=== PATIENT | female | born 1990 | race Caucasian/White ===

== ENCOUNTER 2016-11-12 12:56 | Emergency (ER) | payer MEDICAID ==
[~2016-11-12 12:56] MED LIST: BACTRIM DS DPS1 TAB PO; KLOR-CON M2020 ME1 PO; LOMOTIL-DPS1 TAB PO; MOTRIN-DPS800 MG PO; NEWMANS NIPPLE CREAM TP; PRENATAL VIT1 TAB PO; TYLENOL #3 DPS1 TAB PO
--- NOTE | 2016-11-20 17:46 | ER ---
ADMIT: 11/12/2016 RM/LOC: ER [facility] MR#: [id number] [address] [address] CARLOS MATAMOROS [address] [place] [address] Emergency Room Report SEX: F AGE: 26 : 1990 DATE: 11/12/2016 ADDENDUM: This patient comes to the ER because she has had vomiting and abdominal pain for the last week. She recently was diagnosed with Crohn disease, and it feels similar to that. She denies any fevers. On physical exam, her pain is right around the umbilicus. No rebound tenderness or guarding, but she does appear to be dehydrated. Dry oral mucosal membranes. IV of normal saline was started. She was given a liter of bolus, but was later repeated Zofran and morphine. CT scan showed flare-up of her Crohn disease. She was given Decadron 15 mg IV. Her potassium was low at 2.7, so she was given potassium 40 mEq p.o., and I wrote a prescription for the next week also for prednisone. She is to follow up with her doctor tomorrow if not feeling better. Return to the ER for not keeping fluids down or increased pain. Please see my T-sheet. TABATHA Romero / Lopez Najera MD / modl JOB #: [id number] CC: Lopez Najera MD, Attending Physician Bebe Buckley, Family Physician
== END 2016-11-12 18:15 | disposition home or self-care (01) ==
LOC: ER 12:56
DX: K50.90 Crohn's disease, unspecified, without complications (principal); F17.210 Nicotine dependence, cigarettes, uncomplicated; Z79.899 Other long term (current) drug therapy

== ENCOUNTER 2016-11-22 18:49 | Emergency (ER) | payer MEDICAID ==
--- NOTE | 2016-11-23 00:11 | ER ---
ADMIT: 11/22/2016 RM/LOC: ER [facility] MR#: [id number] [address] [address] CARLOS MATAMOROS [address] [place] [address] Emergency Room Report SEX: F AGE: 26 : 1990 DATE: 11/22/2016 TIME: [address] Bebe Buckley and a GI doctor in [place]. Please refer to my T-sheet for complete H and P. HISTORY OF PRESENT ILLNESS: Briefly, the patient is a 26-year-old, who has been having abdominal cramps, more than usual. It has been going on for 2 months. She was recently diagnosed with Crohn's. She started a new med. She has been off steroids for about a week ago though, seems like things are getting worse. PHYSICAL EXAMINATION: VITAL SIGNS: Vital signs are stable. HEENT: Grossly normal. LUNGS: Clear. HEART: Regular. ABDOMEN: Diffusely tender. No rebound or guarding. SKIN: No rash. EMERGENCY DEPARTMENT COURSE: CBC was normal except white count of 12.9. Chemistry is normal except potassium of 3.2. We gave her a liter of normal saline bolus, Zofran 4 IV and Decadron 10 IV. She was feeling better. I had a long discussion. She is ready for discharge. ASSESSMENT: Crohn's disease flare, off her steroids has made things worse. PLAN: Keep her appointment in 1 week with a kids activities coach and return if worse. Fluids. Prednisone 40, 30, 20, and 10 x 2 days each. Lamine Jesus MD/ norberto JOB #: [id number] CC: Lamine Jesus MD, Attending Physician
== END 2016-11-22 21:09 | disposition home or self-care (01) ==
LOC: ER 18:49
DX: K50.90 Crohn's disease, unspecified, without complications (principal); F17.210 Nicotine dependence, cigarettes, uncomplicated; Z90.49 Acquired absence of other specified parts of digestive tract; Z79.899 Other long term (current) drug therapy

== ENCOUNTER → 2016-12-26 | Outpatient (CLI) | payer MEDICAID | END | disposition home or self-care (01) | LOC: RAD.S 14:00 | DX: K50.00 Crohn's disease of small intestine without complications (principal) ==

== ENCOUNTER 2017-03-01 20:19 | Emergency (ER) | payer MEDICAID ==
--- NOTE | 2017-03-09 15:15 | ER ---
ADMIT: 03/01/2017 RM/LOC: ER [facility] MR#: [id number] [address] [address] CARLOS MATAMOROS [address] [place] [address] Emergency Room Report SEX: F AGE: 26 : 1990 DATE: 03/01/2017 ADDENDUM: This patient comes into the ER because she was knocking on a window. She thought it was Plexiglas and ended being glass and her hand went through the window. She has a small 1 cm laceration on her right forearm. On physical exam, she has good range of motion of all her digits. Strength and sensation are intact. I infiltrated the area with Marcaine and placed 3 interrupted stitches using 4-0 Prolene. Please see my T-sheet. TABATHA Romero / Pradip Orozco MD / milyl JOB #: [id number] CC: Pradip Orozco MD, Attending Physician Elías Adkins MD, Family Physician
== END 2017-03-01 21:10 | disposition home or self-care (01) ==
LOC: ER 20:19
PROC: 0HQDXZZ Repair Right Lower Arm Skin, External Approach (ICD-10-PCS; principal; 2017-03-01)
DX: S51.811A Laceration without foreign body of right forearm, initial encounter (principal); F17.210 Nicotine dependence, cigarettes, uncomplicated; Z90.49 Acquired absence of other specified parts of digestive tract; W25.XXXA Contact with sharp glass, initial encounter; Y92.009 Unspecified place in unspecified non-institutional (private) residence as the place of occurrence of the external cause